=== PATIENT | male | born 1950 | race Caucasian/White ===

== ENCOUNTER → 2019-04-16 | Outpatient (CLI) | payer OTHER | LOC: EDSEX → MRI 09:10 | DX: S83.232A Complex tear of medial meniscus, current injury, left knee, initial encounter (principal); S83.282A Other tear of lateral meniscus, current injury, left knee, initial encounter; M71.22 Synovial cyst of popliteal space [Baker], left knee; M17.12 Unilateral primary osteoarthritis, left knee; R60.0 Localized edema; X58.XXXA Exposure to other specified factors, initial encounter; Y93.89 Activity, other specified; Y92.89 Other specified places as the place of occurrence of the external cause; Y99.8 Other external cause status ==

== ENCOUNTER 2019-06-01 11:59 | Inpatient (IN) | payer OTHER ==
[~2019-06-01] VITALS: Ht 185.4 cm; Wt 130.2 kg
[~2019-06-01 11:59] MED LIST: ASMANEX HFA13 G1 INH; FLEXERIL PO; NORCO 5-325 TA1 EAC1 PO; TOPROL XL25 MG PO; VENTOLIN HFA INH8 GM INH; ZYLOPRIM300 MG PO
[2019-06-01 12:48] LABS: URINE BILIRUBIN NEGATIVE (Negative); URINE BLOOD 1+ (Negative); URINE CLARITY CLOUDY; URINE COLOR YELLOW; URINE GLUCOSE-RANDOM* NEGATIVE (Negative); URINE KETONES NEGATIVE (Negative); URINE PROTEIN (DIPSTICK) NEGATIVE (Negative); URINE SPECIFIC GRAVITY <= 1.005 (1.005-1.035); URINE UROBILINOGEN 0.2 E.U./dl (0.2-1.0)
[2019-06-01 12:49] LABS: URINE LEUKOCYTES-REFLEX 3+ (Negative); URINE NITRITE-REFLEX POSITIVE (Negative)
[2019-06-01 12:51] LABS: ALBUMIN 3.5 g/dL (3.4-5.0); CALCIUM 9.5 mg/dL (8.5-10.1); CREATININE 1.1 mg/dL (0.7-1.3); POTASSIUM 4.5 mmol/L (3.5-5.1)
[2019-06-01 12:54] LABS: HEMATOCRIT 50.8 % (42.0-52.0); HEMOGLOBIN 16.8 gm/dL (14.0-18.0); MCH 30.5 pg (26.0-34.0); MCV 92.6 fL (80.0-100.0); RBC 5.49 mil/uL (4.50-6.00); RDW 15.3 % (10.5-14.5); WBC 7.5 thou/uL (4.0-11.0)
[2019-06-01 12:59] LABS: BACTERIA-REFLEX >30 Many /HPF (None Seen); CASTS None Seen /LPF (None Seen); CRYSTALS None Seen /LPF (None Seen); SQUAMOUS 0-3 Few /LPF (0-3); URINE RBC 0-2 Rare /HPF (0-2); URINE WBC-REFLEX >25 Many /HPF (0-5)
--- NOTE | 2019-06-02 12:37 | EKG ---
[address] [address] ELECTROCARDIOGRAM REPORT Name: ELIAN PEREA Room #: [facility]#: [id number] Admission: Attend Phys: Jermaine Portillo MD Discharge: Date of : 54 Report #: [id number] THIS REPORT FOR: //name// [facility] Test Date: 2019-06-01 Test Time: 12:46:10 Pat Name: ELIAN PEREA Department: Room: Gender: [employer] Worker: [facility] : 1950 Requested By: Jermaine Portillo Order Number: [id number] MD: Primo Stanford Measurements Intervals Arp Rate: 89 P: KS: 165 QRS: 92 QRSD: 97 T: 80 QT: 353 QTc: 430 Interpretive Statements Sinus rhythm No significant abnormality No previous ECG available for comparison Electronically Signed On 06-02-2019 12:37:03 CDT by Primo Stanford [email or web address] <ELECTRONICALLY SIGNED> By: Primo Stanford MD, [facility] 06/02/19 1237 [id number] 1246 Primo Stanford MD, FACC /EPI
[2019-06-22 08:38] LABS: PROTIME 10.8 Seconds (9.3-11.4)
[2019-06-22 08:53] VITALS: BP 139/83
[2019-06-22 14:30] VITALS: BP 124/81
[2019-06-22 15:30] VITALS: BP 131/73
[2019-06-22 17:00] VITALS: BP 108/60
[2019-06-22 17:34] VITALS: BP 99/66
[2019-06-22 19:35] VITALS: BP 105/57
--- NOTE | 2019-06-22 20:23 | NUR ---
ASSUMED CARE AT 1400, SHIFT ASSESSMENT DONE, MEDS GIVEN, VSS. DENIES PAIN, NAUSEA. WORKED WITH PHYSICAL THERAPHY, WALKED IN THE ROOM. ON 3L NASAL CANAULA. ALLYSON DRESSING TO LEFT KNEE CLEAN, DRY, INTACT. WILL CONTINUE TO ASSESS AND ASSIST WITH ADLs NEEDED.
[2019-06-23 01:15] VITALS: BP 102/62
--- NOTE | 2019-06-23 04:28 | NUR ---
PT POST DAY1 , LET TOTAL KNEE REPLACEMENT. AO X4. VITALS STABLE. DENIES PAIN. ALLYSON DRESSING C/D/I. ON 02 2L NC. STARTED ON VANCO LAST NIGHT. DENIES SHORT OF AIR NAUSEA AND VOMITING. ASSESSMENTS DOCUMENTED. NO FURTHER CONCERNS. PT CURRENTLY STABLE. WILL CONTINUE WITH CURRENT PLAN OF CARE.
[2019-06-23 04:30] VITALS: BP 102/60
[2019-06-23 06:43] LABS: HEMOGLOBIN 13.3 gm/dL (14.0-18.0); MCH 29.9 pg (26.0-34.0); MCHC 31.6 g/dL (28.0-37.0); MCV 94.7 fL (80.0-100.0); RBC 4.44 mil/uL (4.50-6.00); RDW 14.7 % (10.5-14.5); WBC 9.9 thou/uL (4.0-11.0)
[2019-06-23 07:04] VITALS: BP 90/60
--- NOTE | 2019-06-23 10:01 | NUR ---
PT A&OX4, AMBULATING WITH PT AND WALKER. IV INTACT INFUSING 2ND BAG OF FLUIDS. ALLYSON DRSG TO L KNEE INTACT WITH POLAR PACK. PT DENIES ANY PAIN SINCE SURGERY. CALL LIGHT W/I REACH. PLANS ARE FOR PT TO POSSIBLY DC LATER TODAY.
[2019-06-23] MEDS ORDERED: ASPIR 8181 MG PO (10:09)
[2019-06-23] MEDS ORDERED: NEURONTIN 300300 M1 PO (10:09)
--- NOTE | 2019-06-23 11:04 | O ---
[facility] [place] [address] OPERATIVE REPORT Name: ELIAN PEREA Room #: 434-P [facility] [place] M.R.#: [id number] Admission: 06/22/19 Attend Phys: Jermaine Portillo MD Discharge: Date of : 54 Report #: [id number] THIS REPORT FOR: //name// CC: Jean Portillo DATE OF SERVICE: 06/22/2019 PREOPERATIVE DIAGNOSIS: Left knee osteoarthritis. POSTOPERATIVE DIAGNOSIS: Left knee osteoarthritis. PROCEDURE: Left total knee arthroplasty using Navio robotic assistance. SURGEON: Jermaine Portillo MD. PLASTIC SURGERY SPECIALIST: Jane Escobar PA-C. INDICATIONS FOR PLASTIC SURGERY SPECIALIST: Throughout the case, extensive retraction and manipulation of the knee was required. This was afforded to me by my visitor information assistant. ANESTHESIA: LMA with an adductor canal block. IMPLANTS: Yeh and Nephew size 7 Legion cobalt chrome posterior stabilized femur, a size 6 tibia, size 9 polyethylene and size 38 patella. TOURNIQUET TIME: 68 minutes. ESTIMATED BLOOD LOSS: 25 mL. COMPLICATIONS: None. SPECIMENS: None. CONDITION UPON LEAVING THE OPERATING ROOM: Stable. INDICATIONS FOR PROCEDURE: The patient is a 68-year-old gentleman with severe left knee osteoarthritis. He had failed conservative measures for this and after discussion with him, he elected for left total knee arthroplasty. DESCRIPTION OF PROCEDURE: Risks, benefits, alternatives, complications were discussed in detail with the patient including but not limited to risk of anesthesia, risk of damage to nerves, arteries, blood vessels, risk for infection, bleeding, risk for continued knee pain, need for reoperation. Informed consent was obtained from the patient. Left knee was appropriately marked in the preoperative holding area. IV vancomycin was given for [facility] [address] [place] [address] OPERATIVE REPORT Name: ELIAN PEREA Room #: 434-P [facility] [place] ..#: [id number] Admission: 06/22/19 Attend Phys: Jermaine Portillo MD Discharge: Date of : 54 Report #: [id number] preoperative antibiotics. Adductor canal block was placed by anesthesia, was brought to the operating room and placed in supine position on operating room table. LMA anesthesia was induced without complication. Tourniquet was placed on the left thigh. Left lower extremity was prepped and draped in normal sterile fashion. Timeout was performed properly identifying the patient and procedure as well as the instrumentation and implants. All in the operating room were in agreement. Left lower extremity was exsanguinated, tourniquet was inflated. Tourniquet time was 68 minutes. Standard midline approach to knee was made with 10 blade through the skin. Dissection was taken down sharply to the fascia and deep flaps were developed medially and laterally. Fresh 10 blade was used to make a medial parapatellar arthrotomy and the knee was inspected. There was severe medial compartment osteoarthritis with moderate lateral patellofemoral arthritis. ACL and PCL were removed sharply. Reference pins were placed in the femur and the tibia and the knee was digitally mapped using the Parrut robotic system. We sized a size 7 femur with a 6 tibia and 11 spacer. After acceptance of the intraoperative plan, the distal femoral cut was made with a Navio bur. The 4-in-1 cutting block was placed and anterior, posterior and chamfer cuts were made on the femur. Attention was then turned to the tibia. The remainder of the menisci removed with Bovie cautery. Tibial resection guide was pinned in place using the Navio for placement of the guide and tibial resection was made. Flexion and extension gaps were checked and found to have good balance in flexion and extension both medially and laterally. Tibia was sized, found to be a size 6. A size 6 tibial trial was placed, pinned and punched. A size 7 femoral trial was placed and the box cut was made. This was then trialed with a size 9 polyethylene. Knee was taken through range of motion, found to have 1-2 millimeter of laxity medially and laterally throughout range of motion. After this, 9 mm was taken off the posterior surface of the patella and a size 38 patellar trial button was placed. Knee was taken through range of motion, found to be stable, found to have good balance in flexion and extension and good patellar tracking. Trial components were removed. Bony ends were thoroughly irrigated with normal saline. A final size 6 tibia, size 7 Legion cobalt chrome posterior stabilized femur and a size 38 patella were cemented in place using standard cementation techniques. While the cement cured, a periarticular injection consisting of morphine, ropivacaine, epinephrine and Toradol was placed around the knee joint capsule. After the cement cured, tourniquet was deflated. Hemostasis was obtained with Bovie cautery. Final size 9 polyethylene was placed. A gram of vancomycin was placed deep in the joint. Fascia was closed with 0 Vicryl, skin was closed with 2-0 Vicryl, skin staple and a ALLYSON dressing was applied. The patient tolerated this procedure well and went to recovery room under care of anesthesia postoperatively. <ELECTRONICALLY SIGNED> By: Jermaine Portillo MD 06/23/19 1104 [id number] Jermaine Portillo MD /nt
--- NOTE | 2019-06-23 15:30 | NUR ---
PT ADMITTED RELATED TO LEFT TOTAL KNEE REPLACEMENT. CM REVIEWED CHART AND SPOKE [facility] CARE TEAM. CM MET WITH PT AT BEDSIDE THIS DAY. PT IS A&O X4. CM ROLE INTRODCUED. PT INDICATED HE LIVES IN A HOUSE WITH HIS SPOUSE AND 3 DOGS WIH 2 STEPS TO ENTER AND NO STEPS INSIDE. 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 PT INDICATED HE WILL NEED A FWW ISSUED UPON DC. CM NOTIFIED PP LIAISON. PT IS SET UP WITH OP PT AT [facility] UPON DC. DC IS ANTICIPATED FOR TOMORROW. CM TO FOLLOW INDICATED WITH DC PLANNING.
[2019-06-23 16:45] VITALS: BP 154/78
[2019-06-23 18:58] VITALS: BP 103/64
[2019-06-23 21:00] VITALS: BP 103/64
--- NOTE | 2019-06-24 03:41 | NUR ---
ASSUMED PT CARE AT 2100. PATIENT CURRENTLY COMPLAINS OF PAIN RADIATING FROM KNEE TO THIGH. PAIN RATING IS A 6/10 NUMERIC RATING. PAIN IS EXACERBATED BY MOVEMENT. PATIENT WAS ADVISED TO REST FOR TONIGHT. PAIN APPEARED TO BE RELEIVED BY PAIN MEDICATION UPON REASSESSMENT. ALLYSON DRESSING IN TACT. CIRCULATION TO LEFT TOE IS GOOD. ALL OTHER FINDINGS WNL. FALL PRECAUTIONS IN PLACE, PATIENT STATES HE WILL CALL IF HE NEEDS ANYTHING. WILL CONTINUE TO MONITOR.
[2019-06-24 04:16] VITALS: BP 102/67
[2019-06-24 05:09] LABS: HEMATOCRIT 38.8 % (42.0-52.0); HEMOGLOBIN 12.4 gm/dL (14.0-18.0); MCH 30.1 pg (26.0-34.0); MCHC 31.9 g/dL (28.0-37.0); MCV 94.5 fL (80.0-100.0); RBC 4.11 mil/uL (4.50-6.00)
[2019-06-24 08:21] VITALS: BP 130/79
[2019-06-24 15:10] VITALS: BP 112/80
--- NOTE | 2019-06-24 18:34 | NUR ---
PT A&OX4, IV INTACT IN L HAND. PT AMBULATED WITH PT TODAY, PAIN BEING MORE CONTROLLED THROUGHOUT THE DAY. POLAR PACK IN PLACE. WILL CONT POC.
[2019-06-24 19:17] VITALS: BP 138/80
--- NOTE | 2019-06-25 04:53 | NUR ---
ASSUMED Pt CARE AT APPROXIMATELY 2044. Pt IS A&OX4. HE COMPLAINS OF DULL PAIN ON HIS RIGHT SIDE. HE STATES THE PAIN STARTS AT HIS KNEE AND RADIATES TO HIS THIGH. WILL CONTINUE TO REPOSITION AND PROVIDE MEDICATION NEEDED. PATIENT VOICES CONCERN ABOUT NEEDING HELP AT HOME AFTER DISCHARGE. CM NOTES INDICATE HE WILL BE GETTING OUTPATIENT PT AFTER DISCHARGE. ALLYSON DRESSING STILL INTACT, POLAR ICE PACK WORKING PROPERLY, SEAN HOSE ON AND SCD'S REAPPLIED FOR THE NIGHT. AFTER MEDICATION ADMINISTRATION PATIENT STATED HE IS COMFORTABLE AND WOULD LIKE TO SLEEP THROUGH THE NIGHT. FALL PRECAUTIONS IN PLACE. WILL CONTINUE TO MONITOR.
[2019-06-25 04:55] VITALS: BP 132/83
--- NOTE | 2019-06-25 05:08 | NUR ---
AT APPROXIMATELY 0500, MACHINE ENGINEER NOTIFIED NURSE OF LOW O2 IN THE LOW 80'S. UPON ASSESSMENT OF Pt, IT APPEARED HIS NASAL CANNULA WAS OFF. Pt WAS INSTRUCTED TO KEEP HIS CANNULA ON. HE AGREED AND HIS O2 WENT BACK TO 92% ON 3L. WILL CONTINUE TO MONITOR.
[2019-06-25 05:24] LABS: HEMATOCRIT 39.3 % (42.0-52.0); HEMOGLOBIN 12.7 gm/dL (14.0-18.0); MCH 30.2 pg (26.0-34.0); MCHC 32.3 g/dL (28.0-37.0); MCV 93.5 fL (80.0-100.0); RBC 4.2 mil/uL (4.50-6.00); RDW 15.2 % (10.5-14.5); WBC 8.3 thou/uL (4.0-11.0)
[2019-06-25 09:11] VITALS: BP 132/76
--- NOTE | 2019-06-25 12:41 | NUR ---
PT RECOMMENDING POST ACUTE CARE STAY UPON DC PT IS STILL NEEDING 3L O2 AT THIS TIME AND HAVING SOME ISSUES WITH PAIN CONTROL. CM MET WITH PT THIS DAY AND HE INDICATED THAT HE WOULD PREFER TO "JUST STAY HERE A FEW MORE DAYS." CM INDICIATED THAT THAT LIKELY WOULDN'T BE POSSIBLE AND THAT THEY WOULD DISCHARGE PT TO SKILLED. PT ASKED THAT REFERRAL BE SENT TO [facility]. [facility] FELLOW TO FAX REFERRAL. CM TO FOLLOW INDICATED WITH DC PLANNING.
[2019-06-25] MEDS ORDERED: MS CONTIN15 MG PO (14:40)
--- NOTE | 2019-06-25 15:06 | NUR ---
FAXED REFERRAL TO [facility] SPOKE WITH RUSSELL IN ADM SHE RECEIVED REFERRAL BUT DOES NOT HAVE A BED AVAILABLE TODAY AND POSS BED AVAILABLE TOMORROW PENDING A DISCHARGE. DP TO FOLLOW.
--- NOTE | 2019-06-25 16:07 | NUR ---
REFERRAL SENT TO [facility] THEY CAN ACCEPT PT BUT DON'T HAVE ANY OPEN BEDS THIS DAY AND MIGHT HAVE ONE TOMORROW PENDING DISCHARGES. CM NOTIFIED PT AND ASKED IF REFERRAL COULD BE SENT SOMEWHERE ELSE CM INDICATED THAT [facility] AND [facility] ARE 6.4 MILES FROM PT'S HOME AND HE STATED THAT ORTHO DOC SAID HE COULD STAY UNTIL TOMORROW AND THAT HE HOPES TO BE ABLE TO DC HOME TOMRROW AFTERNOON. CM INDIATED THAT THE O2 IS THE CURRENT CONCERN AND PT STATED HE WASN'T CONCERNED ABOUT IT HE WOULD GOING HOME AND JUST BE SOB. CM NOTIFIED NURSE. CM TO FOLLOW INDICATED WITH DC PLANNING.
[2019-06-25 17:16] VITALS: BP 128/74
--- NOTE | 2019-06-25 18:30 | NUR ---
PT ASSESSED AT START OF SHIFT. NEEDING 3L O2 AND PT WANTING TO TAKE IT OFF AT TIMES. ENC PT TO USE HE DROPS TO THE 80'S W/O. EATING AND DRINKING WELL. PAIN MANAGED W/ MEDS. PLAN FOR SKILLED REHAB TOMORROW.
[2019-06-25 19:39] VITALS: BP 103/63
[2019-06-26 04:01] VITALS: BP 107/68
--- NOTE | 2019-06-26 05:39 | NUR ---
PATIENT ALERT AND ORIENTED X4. PLEASANT AND COOPERATIVE. C/O PAIN OF ONLY ONE BUT SCHEDULED PAIN MED GIVEN. SLEPT MOST OF NIGHT. UP TO BATHROOM WITH ASSIST. DRESSING ON L KNEE D/I. HAS SEAN'S, SCD'S AND POLAR ICE ON KNEE. ALLYSON ALSO ON. 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
[2019-06-26 07:10] VITALS: BP 103/70
[2019-06-26 14:39] VITALS: BP 103/70
[2019-06-26 14:40] VITALS: BP 103/70
--- NOTE | 2019-06-26 14:40 | NUR ---
PT IS TO DC HOME THIS DAY WIT HOP PT TO BEGIN SATURDAY. PT NEEDED HOME OXYGEN ORDERED WITH 3L AT REST AND WITH ACTIVITY. ORDER SENT TO [facility]. PORTABLE TANK DELIVERED BY R[facility]. PT WAS ISSUED A FWW FOR HOME USE BY PROVIDER [facility]. PT'S SPOUSE IS TO TRANSPORT PT HOME. NO OTHER CM INTERVENTION INDICATED. CASE CLOSED.
--- NOTE | 2019-06-26 16:41 | NUR ---
Assumed patient care at 0715. Patient's vital signs were stable; he denied pain. He was given his MS Contin with am medications, did not ask for any extra medications. Patient consumed 100% of both breakfast and lunch, fluid intake appropriate. Incision to left knee covered with Picco dressing, Polar Pac, followed by Eric Bandage. Bandages clean, dry and intact. Patient assessed for need of Oxygen. Oxygen needed at home (he had been using oxygen as needed at 3 liters per nc). Gissell delived Oxygen for patient to use at home. This nurse and student nurse assisted patient outside of main entrance at approximately 1545 for Discharge. was present, she expressed being upset because she had thought that patient was to be going to a Rehabilitation facility. Patient stated "that's what I thought too!" This nurse replied to patient "it is my understanding that you did not want to go to rehab, that you want to go home." Patient didn't respond to this, he got into their vehicle. then stated "what do we need to do?!", and, "do we need to go back and start this over again?!" This nurse replied "you can appeal this Discharge if you feel you need too", and, "there is paperwork about your rights and Medicare is his Discharge Package. Patient and his then drove away.
== END 2019-06-26 15:47 | DRG 470 ==
LOC: TBA 11:59 → PRE 11:59 → TBA 06-22 07:42 → 4S 06-22 07:42 → PRE 06-22 12:02 → 4S 06-22 14:49
PROVIDERS: ADMIT Orthopaedic Surgery
PROC: 8E0Y0CZ Robotic Assisted Procedure of Lower Extremity, Open Approach (ICD-10-PCS; principal; 2019-06-22)
PROC: 0SRD0J9 Replacement of Left Knee Joint with Synthetic Substitute, Cemented, Open Approach (ICD-10-PCS; principal; 2019-06-22)
DX: M17.12 Unilateral primary osteoarthritis, left knee (principal); Z68.41 Body mass index [BMI] 40.0-44.9, adult; E11.9 Type 2 diabetes mellitus without complications; J44.9 Chronic obstructive pulmonary disease, unspecified; E78.5 Hyperlipidemia, unspecified; I10 Essential (primary) hypertension; E66.9 Obesity, unspecified; Z87.891 Personal history of nicotine dependence
CPT/HCPCS: 10102; 50010; 50101; 50415; 50954; 51130; 51225; 51320; 51412; 52001; 52282; 53000; 53078; 53364; 54118; 56527; 56528; 57095; 57103; 57110; 57127; 57180; 62110; 62900; 64042; 70005